=== PATIENT | male | born 1990 | race Caucasian/White ===

== ENCOUNTER 2017-03-26 12:41 | Outpatient (CLI) | payer BC ==
[2015-03-10 14:00] VITALS: BP 110/69
[2017-03-26 13:51] LABS: BASOPHILS % 0.5 (0.0-1.5); EOSINOPHILS % 1.7 % (0.0-6.8); MEAN CORPUSCULAR HEMOGLOBIN 28.3 pg (28.0-34.0); MEAN CORPUSCULAR VOLUME 84.5 fl (80.0-100.0); MONOCYTES % 6.3 % (0.0-11.0); NEUTROPHILS # 6.7 # k/uL (1.4-7.7)
[2017-03-26 14:18] LABS: eGFR (African) > 60; eGFR (Non-African) > 60
--- NOTE | 2017-03-26 14:57 | Diagnostic Imaging Report ---
JUNG PULIDO [facility] [address] [facility] [address] [place], [place]. [address] Report Submission Date: Mar 26, 2017 2:23:48 PM CDT Patient Study Name: DAINA LUNA Date: Mar 26, 2017 1:45:56 PM CDT Modality Type: CR Gender: M Description: CHEST : 88 Institution: [facility] Physician: JUNG PULIDO Examination: PA and lateral chest. History: Evaluate lung eason. Findings: PA lateral chest demonstrate a normal cardiac and mediastinal silhouette. Poor inspiratory effort. No focal infiltrate. No effusion. No blunting of the costophrenic margins. Osseous structures are appropriate for age. Impression: No acute pulmonary process. Electronically signed on Mar 26, 2017 2:23:48 PM CDT by: Jonatan CONTI
--- NOTE | 2017-03-26 14:58 | Diagnostic Imaging Report ---
JUNG PULIDO [facility] [place] [facility] [address] [facility] [address] [address] Report Submission Date: Mar 26, 2017 2:25:26 PM CDT Patient Study Name: DAINA LUNA Date: Mar 26, 2017 1:48:44 PM CDT Modality Type: CR Gender: M Description: SPINE : 88 Institution: [facility] [place] [facility] Physician: JUNG PULIDO Examination: Plain film lumbar spine History: Back discomfort Findings: 3 views of the lumbar spine demonstrate normal height. No anterior compression. Sacralization of L5. Few early osteophytes. No soft tissue abnormalities. Impression: No acute osseous process. If patient is experiencing neurologic symptoms, recommend obtaining MRI. Electronically signed on Mar 26, 2017 2:25:26 PM CDT by: Jonatan CONTI
--- NOTE | 2017-03-26 14:59 | Diagnostic Imaging Report ---
JUNG PULIDO [facility] [address] [facility] [address] [address] Report Submission Date: Mar 26, 2017 2:30:25 PM CDT Patient Study Name: DAINA LUNA Date: Mar 26, 2017 1:55:44 PM CDT Modality Type: CR Gender: M Description: LOWER EXTREMITY : 88 Institution: [facility] Physician: JUNG PULIDO Examination: Plain film foot History: Arthritis Findings: 2 views of the right and left feet are without fracture or dislocation. Degenerative changes involving the left foot 1st metatarsophalangeal articulation associated with fusion of the phalangeal joint. 4th and 5th digits metatarsophalangeal degenerative changes. No right foot articular degenerative changes. No soft tissue swelling. No joint effusion. Impression: Left foot degenerative changes/fusion. No right foot acute osseous process. Electronically signed on Mar 26, 2017 2:30:25 PM CDT by: Jonatan CONTI
--- NOTE | 2017-03-26 15:00 | Diagnostic Imaging Report ---
JUNG PULIDO [facility] [address] [facility] [address] [address] Report Submission Date: Mar 26, 2017 2:32:00 PM CDT Patient Study Name: DAINA LUNA Date: Mar 26, 2017 2:02:52 PM CDT Modality Type: CR Gender: M Description: UPPER EXTREMITY : 88 Institution: [facility] Physician: JUNG PULIDO Examination: Plain film hand History: Arthritis Comparison exams: None available Findings: 3 views the right and left hands demonstrate normal cortical margins. No fracture. No dislocation. No soft tissue abnormality. Impression: No acute osseous abnormality. No evidence for advanced arthritic changes. Electronically signed on Mar 26, 2017 2:32:00 PM CDT by: Jonatan CONTI
--- NOTE | 2017-03-26 17:17 | CONSULTATION REPORT ---
REFERRING PHYSICIAN: Dr. Audie Chinchilla CONSULTING PHYSICIAN: Dr. Rubén Patton HISTORY OF PRESENT ILLNESS: Kevin Ibrahim is a 26-year-old white male who has had psoriasis for many years and psoriatic arthritis diagnosed at age 19. He was previously seen at the [place] and then by Dr. Mccabe at [facility]. 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 He has been off Enbrel now 18 months. He comes in and he is having worsening pain and stiffness of the hands, wrists, and feet with swelling of the toes. His psoriasis has worsened with involvement of his scalp, chest, buttocks, belly, and extremities. He has had severe nail deformities. His prior treatment consisted of methotrexate which made him ill and gave him flu-like symptoms and failed to help. In addition, a combination of methotrexate and Enbrel resulted in continued symptoms and morning stiffness, pain, swelling, rashes, and significant pain at the site of injection. At one point, he Enbrel alone, for he was conceiving, so methotrexate was stopped. His baby is 7 months old and him and his again wish to conceive. His pain level is about 8 to 9 over 10. He has difficulty getting out of bed because of generalized stiffness, getting out of a car, walking, and cannot participate in any leisure time activities. On today's exam, the main issues are upper neck and back pain and bilateral foot and ankle pain. His gait is slightly antalgic. PAST MEDICAL HISTORY: Asthma. PRESENT MEDICATIONS: 1. Naproxen. 2. Tramadol. ALLERGIES: He reports no drug allergies. SOCIAL HISTORY: Patient does not smoke. He has an occasional drink. He is . 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 He lives in [place], [place], and was born in [place], [place]. REVIEW OF SYSTEMS: He has fatigue. Some problems with anxiety, depression, difficulty sleeping, otherwise, no change in his weight. No unexplained fevers, chills. No night sweats. No red, painful eyes or loss of vision. No mouth sores. No shortness of breath, cough, or wheezing, nausea, vomiting, or diarrhea. No dark stools or bloody stools. No history of infections. No STDs. No skin rashes, hives, photosensitivities. Last TB screening was approximately 4 years ago. PHYSICAL EXAMINATION: Vital Signs: Height: 5 feet 7 inches. Weight: 201. T: 97.7, R: 18, heart rate 57, BP: 140/90. He has 2 or 3 hours of morning stiffness and pain at 8 to 9 over 10. HEENT: Remarkable for extensive psoriasis of the scalp, mainly at the hairline , otherwise, EOMI's are intact. No stomatitis or glossitis. No cervical lymph nodes. No thyroid enlargement. Lungs: Clear bilaterally. Heart: Regular rate and rhythm. Abdomen: Soft and nontender. Vascular Exam: No edema or cyanosis. Nails: Extensive pitting of both the hands and feet. Skin: Psoriatic lesions of the anterior chest, as well as the scalp and extremities. Joints: DIPs are tender. PIPs are tender. MCPs, wrists, and elbows are unremarkable. Good range of motion of the shoulders. Good range of motion of the hips and knees. Both ankles are tender. The Achilles tendon bilaterally appear thick and are slightly tender. Toes are diffusely tender. He also has some MTP pain. Straight leg raising test was negative. Testing for SI pain was negative. He had good lumbar flexion, however, loss of extension. IMPRESSION: 1. Psoriasis. 2. Psoriatic arthritis. PLAN: This gentleman has failed to attain remission on a combination of methotrexate and Enbrel. Furthermore, methotrexate was intolerable due to flu-like symptoms , and nausea. I would like the patient on Humira 40 mg subcutaneous every other week and this may deem a letter of medical necessity. I will update his labs with a CBC, CMP, CRP, ESR, and QuantiFERON-TB Gold. He has been previously tested for hepatitis and that has been negative. We will x-ray his hands and feet, as well as his lumbar spine and obtain a baseline chest x-ray. I will see him after he has received 4 injections of Humira. Thank you very much. Best regards, cc: Dr. Audie CONTI
== END 2017-03-26 12:45 ==
LOC: RHEU 12:41
PROVIDERS: ATTEND Internal Medicine
DX: L40.9 Psoriasis, unspecified (principal); L40.50 Arthropathic psoriasis, unspecified
CPT/HCPCS: 36415; 71020; 72100; 80053; 85025; 85651; 86140; 86480; 99213; 99214